=== PATIENT | male | born 1990 | race American Indian/Alaskan Native ===

== ENCOUNTER 2018-12-04 14:24 | Emergency (ER) | payer OTHER ==
--- NOTE | 2018-12-04 14:38 | Event Note ---
ED Screening Note Date of service: 12/04/18 Time: 14:37 ED Screening Note: 28 y o male presents with FB inleft eye causing pain and swelling This initial assessment/diagnostic orders/clinical plan/treatment(s) is/are subject to change based on patients health status, clinical progression and re- assessment by fellow clinical providers in the ED. Further treatment and workup at subsequent clinical providers discretion. Patient/guardian urged not to elope from the ED as their condition may be serious if not clinically assessed and managed. Initial orders include: eye kit
[2018-12-04] MEDS ORDERED: FUL-GLO OP ONE (18:45)
[2018-12-04] MEDS ORDERED: TETRACAINE 0.5% OU ONE (18:45)
--- NOTE | 2018-12-04 19:00 | Emergency Department Report ---
ED Eye Problem HPI - General Chief complaint: Eye Problems Stated complaint: CANT SEE OUT OF LEFT EYE Time Seen by Provider: 12/04/18 14:37 Source: patient Mode of arrival: Ambulatory Limitations: No Limitations - History of Present Illness Initial comments: Patient is 28-year-old male who presents the emergency room with complaints of left eye redness and pain that began 2 weeks ago. The patient states he has a foreign body sensation in the left eye with blinking. he states he has been frequently rubbing the eye. He denies getting anything into the eye. Denies any contact use. Patient denies any vision changes. He states he has noticed some mucous drainage from the left eye. Denies any past medical history allergies medications. - Related Data Previous Rx's Medication Instructions Recorded Last Taken Type Erythromycin [Erythromycin Ophth 1 applic OS QID #1 tube 12/04/18 Unknown Rx Oint] Allergies Allergy/AdvReac Type Severity Reaction Status Date / Time No Known Allergies Allergy Verified 12/04/18 14:26 ED Review of Systems ROS: Stated complaint: CANT SEE OUT OF LEFT EYE Other details as noted in HPI Comment: All other systems reviewed and negative ED Past Medical Hx - Past Medical History Previous Medical History?: No - Surgical History Past Surgical History?: No - Social History Smoking Status: Current Every Day Smoker Substance Use Type: Alcohol - Medications Home Medications: Home Medications Medication Instructions Recorded Confirmed Last Taken Type Erythromycin [Erythromycin Ophth 1 applic OS QID #1 tube 12/04/18 Unknown Rx Oint] ED Physical Exam - General Limitations: No Limitations General appearance: alert, in no apparent distress - Head Head exam: Present: atraumatic, normocephalic - Eye Eye exam: Present: PERRL, EOMI, conjunctival injection (left), other (internal hordeolum to the left upper eyelid, fluroscein and brennan lamp used and small uptake at the 11 oclock position) - ENT ENT exam: Present: mucous membranes moist - Neurological Exam Neurological exam: Present: alert, oriented X3 - Psychiatric Psychiatric exam: Present: normal affect, normal mood - Skin Skin exam: Present: warm, dry, intact ED Course Vital Signs 12/04/18 14:36 Temperature 98.6 F Pulse Rate 97 H Respiratory 18 Rate Blood Pressure 142/86 O2 Sat by Pulse 97 Oximetry Critical care attestation.: If time is entered above; I have spent that time in minutes in the direct care of this critically ill patient, excluding procedure time. ED Disposition Clinical Impression: Conjunctivitis Qualifiers: Conjunctivitis type: acute Acute conjunctivitis type: unspecified Laterality: left Qualified Code(s): H10.32 - Unspecified acute conjunctivitis, left eye Corneal abrasion Qualifiers: Encounter type: initial encounter Laterality: left Qualified Code(s): S05.02XA - Injury of conjunctiva and corneal abrasion without foreign body, left eye, initial encounter Internal hordeolum of left eye Qualifiers: Eyelid: upper Qualified Code(s): H00.024 - Hordeolum internum left upper eyelid Disposition: DC- TO HOME OR SELFCARE Is pt being admited?: No Does the pt Need Aspirin: No Condition: Stable Instructions: Corneal Abrasion (ED), Conjunctivitis (ED), Stye (ED) Additional Instructions: please use medication as prescribed. avoid rubbing the eye. follow up with an battery technician in the next 2-3 days. return to the emergency room for any new or worsening symptoms. Prescriptions: Erythromycin [Erythromycin Ophth Oint] 1 applic OS QID #1 tube Referrals: MAYE CHAPIN MD [Staff Physician] - 2-3 Days EDWIN JEFFRIES MD [Staff Physician] - 2-3 Days Time of Disposition: 19:00 Print Language: IRISH
[2018-12-04 19:14] VITALS: BP 138/91
== END 2018-12-04 19:14 | disposition home or self-care (01) ==
LOC: ED 14:24
DX: S05.02XA Injury of conjunctiva and corneal abrasion without foreign body, left eye, initial encounter (principal); H10.9 Unspecified conjunctivitis; H00.024 Hordeolum internum left upper eyelid; F17.200 Nicotine dependence, unspecified, uncomplicated; X58.XXXA Exposure to other specified factors, initial encounter; Y93.89 Activity, other specified; Y92.89 Other specified places as the place of occurrence of the external cause; Y99.8 Other external cause status

== ENCOUNTER 2020-07-09 12:32 | Emergency (ER) | payer SELFPAY ==
[2020-07-09 12:58] VITALS: BP 166/82
--- NOTE | 2020-07-09 12:58 | Event Note ---
ED Screening Note Date of service: 07/09/20 Time: 12:57 ED Screening Note: 30-year-old [id number] male patient with history of gout presents emergency department with complaints of nontraumatic pain to his right hand starting 2 weeks ago and swelling progressively worsening over the last week. The swelling is not localized to any one particular joint. No known history of diabetes. General: Awake, appropriately interactive, no acute distress. Neck: Supple. Full range of motion intact. Cardiovascular: Normal peripheral perfusion. Pulmonary: No respiratory distress. Patient is speaking normally without use of accessory muscles. Skin: No apparent rashes or lesions. Neurological: No facial asymmetry. Speech is clear. Follows commands. Patient is alert and oriented. Musculoskeletal: Significant swelling noted throughout the right hand, particularly along the dorsal surface, with tenderness to palpation and limited active range of motion in all directions due to pain/swelling. Palpable radial pulse. Distal neurovascular function intact. No crepitus. Psych: Cooperative. Appropriate mood and affect. I have greeted and performed a focused rapid initial assessment of this patient. A comprehensive ED assessment and evaluation of the patient, analysis of all test results, and completion of the medical decision-making process will be conducted by additional ED providers. This initial assessment/diagnostic orders/clinical plan/treatment(s) is/are subject to change based on patients health status, clinical progression and re-assessment. Further treatment and workup at subsequent clinical provider's discretion. Patient/guardian urged not to elope from the ED as their condition may be serious if not clinically assessed and managed.
--- NOTE | 2020-07-09 13:32 | XRay Report ---
Right hand 2 views INDICATION: Pain and swelling FINDINGS: MCP joints and IP joints appear normal. Carpal bone alignment appears normal. Diffuse swell ing of the dorsal aspect of the hand. IMPRESSION: Diffuse swelling of the dorsal aspect of the hand. No acute fracture is definitely seen. Signer Name: Chris Tripathi MD Signed: 07/09/2020 1:28 PM Workstation Name: [email or web address]
[2020-07-09 14:36] LABS: Hematocrit 46.6 % (35.5-45.6); Hemoglobin 15.4 gm/dl (11.8-15.2); Mean Corpuscular HGB Conc 33 % (32-34); Mean Corpuscular Volume 84 fl (84-94); Platelet Count 331 K/mm3 (140-440); Red Blood Count 5.54 M/mm3 (3.65-5.03); Red Cell Distribution Width 15.3 % (13.2-15.2)
[2020-07-09 14:54] LABS: Alanine Aminotransferase 48 units/L (7-56); Albumin 4.1 g/dL (3.9-5); BUN/Creatinine Ratio 10; Blood Urea Nitrogen 8 mg/dL (9-20); Calcium 8.9 mg/dL (8.4-10.2); Hemolysis Index 45
[2020-07-09 15:51] LABS: Total Cells Counted 100
[2020-07-09 15:52] LABS: Myelocytes # (Manual) 0.1 K/mm3
[2020-07-09 15:53] LABS: RBC Morphology Normal
--- NOTE | 2020-07-09 16:32 | Emergency Department Report ---
ED General Adult HPI - General Chief complaint: Extremity Injury, Upper Stated complaint: RT HAND PAIN/SWOLLEN PUI?: No Time Seen by Provider: 07/09/20 16:31 Source: patient, RN notes reviewed, old records reviewed Mode of arrival: Ambulatory Limitations: No Limitations - History of Present Illness Initial comments: The patient was evaluated in the emergency department for symptoms described in the history of present illness. He/she was evaluated in the context of the global COVID-19 pandemic, which necessitated consideration that the patient might be at risk for infection with the virus that causes COVID-19. Institution al protocols and algorithms that pertain to the evaluation of patients at risk for COVID-19 are in a state of rapid change based on information released by regulatory bodies including the CDC and federal and state organizations. These policies and algorithms were followed during the patient's care in the emergency department. Please note that these policies, procedures and recommendations changed on a rapid basis. This is a pleasant 30-year-old gentleman. He is right-hand dominant, and drives a forklift for work. He is not known to myself previously. The patient presents to the ER today with a complaint of nontraumatic right hand, wrist pain and swelling for the past 7 days. Patient denies trauma, fever, chills, weakness and numbness. This is the third or fourth time the patient has experienced similar symptoms. Preceding this pain, the patient reports multiple dietary indiscretions, including consumption of plenty of beer, cheese, pizza, burgers, etc. He does not really consume much in the way of fiber, fruits, vegetables or lean protein. Last year, he had similar symptoms. He also endorses nonspecific pain in the feet, which is now resolved, which is similar to this. He has never had a formal arthrocentesis. He does not have a local primary care doctor or machine stapler. His pain is throbbing and aching, increases with palpation and decreases with rest, position, and appropriate oral medications. He has not really tried anything at home. He denies additional injuries and complaints -: Gradual, days(s) Location: right, upper extremity Quality: aching Consistency: constant Improves with: medication, rest Worsens with: movement Associated Symptoms: denies other symptoms - Related Data Previous Rx's Medication Instructions Recorded Last Taken Type Acetaminophen [Non-Aspirin Extra 500 mg PO Q6HR PRN #30 tablet 04/08/21 Unknown Rx Strength] Indomethacin [Indocin] 25 mg PO Q8H #19 capsule 07/09/20 Unknown Rx Allergies Allergy/AdvReac Type Severity Reaction Status Date / Time No Known Allergies Allergy Verified 07/09/20 12:51 ED Review of Systems ROS: Stated complaint: RT HAND PAIN/SWOLLEN Other details as noted in HPI Comment: All other systems reviewed and negative Musculoskeletal: joint swelling, arthralgia, myalgia ED Past Medical Hx - Past Medical History Additional medical history: GOUT - Surgical History Additional Surgical History: NONE - Social History Smoking Status: Never Smoker Substance Use Type: None - Medications Home Medications: Home Medications Medication Instructions Recorded Confirmed Last Taken Type Acetaminophen [Non-Aspirin Extra 500 mg PO Q6HR PRN #30 tablet 07/09/20 Unknown Rx Strength] Indomethacin [Indocin] 25 mg PO Q8H #19 capsule 07/09/20 Unknown Rx ED Physical Exam - General Limitations: No Limitations General appearance: alert, in no apparent distress, obese - Head Head exam: Present: atraumatic, normocephalic - Eye Eye exam: Present: normal appearance, EOMI. Absent: nystagmus - ENT ENT exam: Present: normal exam, normal orophraynx, mucous membranes moist, normal external ear exam - Neck Neck exam: Present: normal inspection, full ROM. Absent: tenderness, me ningismus - Respiratory Respiratory exam: Present: normal lung sounds bilaterally. Absent: respiratory distress, wheezes, rales, rhonchi, stridor, decreased breath sounds - Cardiovascular Cardiovascular Exam: Present: regular rate, normal rhythm, normal heart sounds. Absent: bradycardia, tachycardia, irregular rhythm, systolic murmur, diastolic murmur, rubs, gallop - GI/Abdominal GI/Abdominal exam: Present: soft, normal bowel sounds. Absent: distended, tenderness, guarding, rebound, rigid, pulsatile mass - Rectal Rectal exam: Present: deferred - Extremities Exam Extremities exam: Present: full ROM, tenderness (There is mild diffuse right hand tenderness. There is no redness, pus or streaking. Wrist, elbow, fingers/intrinsics range of motion intact.), normal capillary refill, other (2+ pulses noted in the bilateral upper and lower extremities. There is no palpable cord. negative Homans sign. Muscular compartments are soft. The pelvis is stable.). Absent: normal inspection (Left upper extremity and bilateral extremities within normal limits. The right hand has mild diffuse swelling.), pedal edema, calf tenderness - Back Exam Back exam: Present: normal inspection, full ROM. Absent: tenderness, CVA tenderness (R), CVA tenderness (L), paraspinal tenderness, vertebral tenderness - Neurological Exam Neurological exam: Present: alert, oriented X3, normal gait, other (No facial droop. Tongue midline. Extraocular movements intact bilaterally. Facial sensation intact to light touch in V1, V2, V3 distribution bilaterally. 5 and a 5 strength in 4 extremities. Sensation intact to light touch in 4 extremities.). Absent: motor sensory deficit - Psychiatric Psychiatric exam: Present: anxious - Skin Skin exam: Present: warm, dry, intact, normal color. Absent: rash ED Course Vital Signs 07/09/20 12:57 Temperature 98.2 F Pulse Rate 82 Respiratory 20 Rate Blood Pressure 166/82 O2 Sat by Pulse 100 Oximetry - Reevaluation(s) Reevaluation #1: 07/09/20 18:19 Final reassessment. Feeling improved. Range of motion improved. Pain improved. Listening to music on cell phone. Have re discussed discharge instructions. Patient states he is reliable to follow-up. ED Medical Decision Making - Lab Data Result diagrams: 07/09/20 13:46 07/09/20 13:46 Vital Signs 07/09/20 12:57 Temperature 98.2 F Pulse Rate 82 Respiratory 20 Rate Blood Pressure 166/82 O2 Sat by Pulse 100 Oximetry Lab Results 07/09/20 07/09/20 07/09/20 Range/Units 13:46 13:46 13:50 WBC 10.8 (4.5-11.0) K/mm3 RBC 5.54 H (3.65-5.03) M/mm3 Hgb 15.4 H (11.8-15.2) gm/dl Hct 46.6 H (35.5-45.6) % MCV 84 (84-94) fl MCH 28 (28-32) pg MCHC 33 (32-34) % RDW 15.3 H (13.2-15.2) % Plt Count 331 (140-440) K/mm3 Add Manual Diff Complete Total Counted 100 Seg Neuts % (Manual) 59.0 (40.0-70.0) % Lymphocytes % (Manual) 29.0 (13.4-35.0) % Monocytes % (Manual) 10.0 H (0.0-7.3) % Eosinophils % (Manual) 1.0 (0.0-4.3) % Myelocytes % 1.0 % Promyelocytes % 0 % Nucleated RBC % Not Reportable Seg Neutrophils # Man 6.4 (1.8-7.7) K/mm3 Band Neutrophils # 0.0 K/mm3 Lymphocytes # (Manual) 3.1 (1.2-5.4) K/mm3 Abs React Lymphs (Man) 0.0 K/mm3 Monocytes # (Manual) 1.1 H (0.0-0.8) K/mm3 Eosinophils # (Manual) 0.1 (0.0-0.4) K/mm3 Basophils # (Manual) 0.0 (0.0-0.1) K/mm3 Metamyelocytes # 0.0 K/mm3 Myelocytes # 0.1 K/mm3 Promyelocytes # 0.0 K/mm3 Blast Cells # 0.0 K/mm3 WBC Morphology Not Reportable Hypersegmented Neuts Not Reportable Hyposegmented Neuts Not Reportable Hypogranular Neuts Not Reportable Smudge Cells Not Reportable Toxic Granulation Not Reportable Toxic Vacuolation Not Reportable Dohle Bodies Not Reportable Pelger-Huet Anomaly Not Reportable Denny Rods Not Reportable Platelet Estimate Appears normal Clumped Platelets Not Reportable Plt Clumps, EDTA Not Reportable Large Platelets Not Reportable Giant Platelets Not Reportable Platelet Satelliting Not Reportable Plt Morphology Comment Not Reportable RBC Morphology Normal Dimorphic RBCs Not Reportable Polychromasia Not Reportable Hypochromasia Not Reportable Poikilocytosis Not Reportable Anisocytosis Not Reportable Microcytosis Not Reportable Macrocytosis Not Reportable Spherocytes Not Reportable Pappenheimer Bodies Not Reportable Sickle Cells Not Reportable Target Cells Not Reportable Tear Drop Cells Not Reportable Ovalocytes Not Reportable Helmet Cells Not Reportable Brown-[place]gro[place] Bodies Not Reportable Everton Rings Not Reportable Christine Cells Not Reportable Bite Cells Not Reportable Crenated Cell Not Reportable Elliptocytes Not Reportable Acanthocytes (Spur) Not Reportable Rouleaux Not Reportable Hemoglobin C Crystals Not Reportable Schistocytes Not Reportable Malaria parasites Not Reportable Sean Bodies Not Reportable Hem Pathologist Commnt No Sodium 137 (137-145) mmol/L Potassium 4.7 (3.6-5.0) mmol/L Chloride 102.0 (98-107) mmol/L Carbon Dioxide 27 (22-30) mmol/L Anion Gap 13 mmol/L BUN 8 L (9-20) mg/dL Creatinine 0.8 (0.8-1.3) mg/dL Estimated GFR > 60 ml/min BUN/Creatinine Ratio 10 % Glucose 97 (75-100) mg/dL Calcium 8.9 (8.4-10.2) mg/dL Total Bilirubin 0.30 (0.1-1.2) mg/dL AST 31 (5-40) units/L ALT 48 (7-56) units/L Alkaline Phosphatase 92 (35-129) units/L Total Creatine Kinase 301 H (55-170) units/L Total Protein 7.6 (6.3-8.2) g/dL Albumin 4.1 (3.9-5) g/dL Albumin/Globulin Ratio 1.2 % - Radiology Data Radiology results: report reviewed, image reviewed [facility] [address] [place] [address] XRay Report Signed Patient: CORDELL TORO MR#: [id number] : 1990 Acct:[id number] Age/Sex: 30 / M ADM Date: 07/09/20 Loc: ED Attending Dr: Ordering Physician: CRISSY WAKEFIELD Date of Service: 07/09/20 Procedure(s): XR hand 2V RT Accession Number(s): [id number] cc: CRISSY WAKEFIELD Fluoro Time In Minutes: Right hand 2 views INDICATION: Pain and swelling FINDINGS: MCP joints and IP joints appear normal. Carpal bone alignment appears normal. Diffuse swelling of the dorsal aspect of the hand. IMPRESSION: Diffuse swelling of the dorsal aspect of the hand. No acute fracture is definitely seen. Signer Name: Chris Tripathi MD Signed: 07/09/2020 1:28 PM Workstation Name: [id number] Transcribed By: CW Dictated By: JADE TRIPATHI MD Electronically Authenticated By: JADE TRIPATHI MD Signed Date/Time: 07/09/208 DD/ - Medical Decision Making Differential diagnosis, including but not limited to: Arthritis, gout, pseudogout, hypertension, obesity, diet lifestyle noncompliance Assessment and plan: 30-year-old gentleman, who is right-hand dominant, who drives a forklift for living, presenting with 1 week of recurrent right hand and wrist pain which is nontraumatic. No redness, pus or streaking. Range of motion intact in the wrist and digits, there is no redness, there is minimal warmth, the muscular compartments are soft, and he is neurovascularly intact. He reports this is his third or fourth lifetime event, he has had the right hand involved in the past, and he has had foot involvement in the past. He has not had a formal arthrocentesis in the past, and he denies fever, chills, nausea, vomiting or weakness. He is currently playing on his cell phone and listening to music, and does not appear to be in any acute distress. He is not interested in arthrocentesis at this time. He also endorses multiple dietary indiscretions over the past week and a half, including beer, pizza, cheese burgers, salty food. This is most likely gout. Patient will be medicated with Percocet, and steroids. Patient will be discharged home on steroid burst and Tylenol/acetaminophen. Patient strongly counseled on need to lose weight, adhere to appropriate diet lifestyle modifications, follow-up with an outpatient primary care doctor for elevated blood pressure, and follow-up with either outpatient primary care, or rheumatology, for further evaluation of intermittent monoarthropathy. Patient resting comfortably in stretcher, and in no acute distress at this time. This appears to be similar to his prior presentations. Critical care attestation.: If time is entered above; I have spent that time in minutes in the direct care of this critically ill patient, excluding procedure time. ED Disposition Clinical Impression: Right hand pain, Elevated blood pressure reading, Body mass index (BMI) greater than 40 Disposition: DC-01 TO HOME OR SELFCARE Is pt being admited?: No Does the pt Need Aspirin: No Condition: Good Instructions: Low-Purine Eating Plan, DASH Eating Plan, Preventing Hypertension, Obesity, Adult Additional Instructions: As we discussed, patient likely has elevated body mass index, elevated blood pressure, and probable gout. We recommend that the patient lose weight, exercise as tolerated, drink 6 cups of water per day, and specifically avoid consumption of salty foods, and cheese, fried foods, beer, wine. Patient should consume plenty of unprocessed grilled chicken, fish, with minimal seasoning. Patient should follow-up with a primary care doctor for elevated blood pressure and elevated body mass index within the next 2 weeks. Patient should follow-up with a primary care doctor or machine stapler for recurrent right hand pain and swelling within the next month. Patient may use the right upper extremity for gentle work-related tasks, but avoid heavy lifting. Patient may apply ice packs and heat packs as needed to the right upper extremity for pain. Please return to the emergency room right away with new pain, worsened pain, migration of pain, projectile vomiting, change in mental status, confusion, hussein bility to tolerate liquid feeds, new, worsened or different symptoms not present on the initial emergency room evaluation. Dr. Kaya Alvarez is a local primary care doctor. We recommend that the patient go onto his insurance company's website, or contact his insurance company directly, to find a machine stapler in network. Please take the prescribed acetaminophen as needed, and steroids as directed. When taking the indomethacin, please take 50 mg; 2 tablets every 8 hours for the first 2 days, and then take 25 mg, 1 tablet, every 8 hours, for the subsequent 3 days. Avoid consumption of Motrin, ibuprofen, Naprosyn, Aleve. Prescriptions: Indomethacin [Indocin] 25 mg PO Q8H #19 capsule Acetaminophen [Non-Aspirin Extra Strength] 500 mg PO Q6HR PRN #30 tablet PRN Reason: Pain , Severe (7-10) Forms: Work/School Release Form(ED)
[2020-07-09] MEDS ORDERED: oxyCODONE /ACETAMINOPHEN 5-325MG TAB PO ONE (16:44)
[2020-07-09] MEDS ORDERED: predniSONE 20 MG TAB PO ONE (16:44)
[2020-07-09] MEDS ORDERED: ACETAMINOPHEN 325 MG TAB PO STA (17:51)
== END 2020-07-09 19:00 | disposition home or self-care (01) ==
LOC: ED 12:32
DX: M79.641 Pain in right hand (principal); I10 Essential (primary) hypertension; Z68.41 Body mass index [BMI] 40.0-44.9, adult; Z79.899 Other long term (current) drug therapy
CPT/HCPCS: 36415; 73120; 80053; 82550; 85007; 85025; 99283; J7512